=== PATIENT | male | born 1955 | race Caucasian/White ===

== ENCOUNTER 2018-07-07 14:40 | Inpatient (IN) | payer SELFPAY ==
[2018-07-07] MEDS ORDERED: LIDOCAINE 1% PF 2 ML VIAL. ONE (14:42)
[2018-07-07] MEDS ORDERED: IODIXANOL 320 MG/ML 100 ML VIAL. ONE (14:42)
[2018-07-07] MEDS ORDERED: fentaNYL PF VIAL 100 MCG/2 ML VIAL IV ONE (14:45)
[2018-07-07] MEDS ORDERED: IODIXANOL 320 MG/ML 100 ML VIAL. IART ONE (14:45)
[2018-07-07] MEDS ORDERED: LIDOCAINE 1% PF 2 ML VIAL. INJ ONE (14:45)
[2018-07-07] MEDS ORDERED: HEPARIN for IV BOLUS 10,000 UNIT/10 ML VIAL. IART ONE (14:45)
[2018-07-07] MEDS ORDERED: VERAPAMIL 5 MG/2 ML VIAL. IART ONE (14:45)
[2018-07-07] MEDS ORDERED: NITROGLYCERIN 200 MCG/2 ML SYRINGE FOR CATH/VASC LAB. IART ONE (14:45)
[2018-07-07] MEDS ORDERED: MIDAZOLAM HCL/PF 2 MG/2 ML VIAL. IV ONE (14:45)
[2018-07-07] MEDS ORDERED: VERAPAMIL 5 MG/2 ML VIAL. ONE (14:50)
[2018-07-07] MEDS ORDERED: fentaNYL PF VIAL 100 MCG/2 ML VIAL ONE (14:50)
[2018-07-07] MEDS ORDERED: MIDAZOLAM HCL/PF 2 MG/2 ML VIAL. ONE (14:50)
[2018-07-07] MEDS ORDERED: HEPARIN for IV BOLUS 10,000 UNIT/10 ML VIAL. ONE (14:50)
[2018-07-07] MEDS ORDERED: NITROGLYCERIN 200 MCG/2 ML SYRINGE FOR CATH/VASC LAB. ONE (14:51)
[2018-07-07] MEDS ORDERED: CONTRAST GIVEN. MC PRN (15:15)
[2018-07-07 15:16] VITALS: BP 133/87
--- NOTE | 2018-07-07 15:41 | CARD ---
MR#: [id number] Date of Study: 07/07/2018 Ordering Physician: VISH MONTEMAYOR, Referring Physician: VISH MONTEMAYOR, Tech: RT Shayna (R) APPROVED REPORT Technologist: RT Shayna (R) Nurse: Rachel Stephens RN Procedure(s) performed: Sedation Time: 25 Minutes [facility], Coronary angiography, Left ventriculography HISTORY : The patient is a 63 year-old male with a history of . INDICATION The indication(s) include : non-STEMI , dyspnea. CASE TECHNIQUE During this case, Fluoroscopy and low osmolar contrast were used for imaging. PROCEDURE NARRATIVE INFORMED CONSENT: After explaining the risks and benefits of the procedure and alternatives, informed consent was obtained. The patient was brought electively to the cardiac catheterization lab. A timeout was performed confi rming the patient's name, date of , procedure, and site of procedure. All necessary personnel w ere wearing the appropriate protective equipment and radiation monitor devices. (See nursing notes for medications administered). ACCESS: The right wrist was sterilely prepped and draped in the usual fashion. The right wrist was infiltrat ed with 1 mL of 2% lidocaine for subcutaneous anesthesia. A 6 Italian Terumo glide sheath was inserte d into the right radial artery without difficulty. CORONARY ANGIOGRAPHY: Right and left coronary angiography was performed using a 6Fr TIG 4.0 catheter. Left ventricular en d diastolic pressure was obtained with a TIG catheter and pullback was performed after left ventricul ography. All catheter exchanges and advancements were performed over a guidewire. CLOSURE: At case completion the right radial sheath was removed and a Terumo radial band was applied with 13 m l of air. COMPLICATIONS: The patient tolerated the procedure well and there were no immediate complications. FINDINGS: HEMODYNAMICS: LVEDP 26 mm Hg No gradient on LV to aortic pullback. AO: 128/78 LEFT VENTRICULOGRAM: Global hypokinesis with an EF of 30% CORONARY ANGIOGRAPHY: LM is a large caliber vessel with normal angiographic appearance. LAD is a large caliber vessel with a distal 20% stenosis. Ramus is a moderate caliber vessel with normal angiographic apeparance. LCx is a moderate caliber non-dominant vessel with normal angiographic appearance. OM1 is a moderate caliber vessel with normal angiographic appearance. RCA is a large caliber dominant vessel with normal angiographic appearance. RPDA and RPL are moderate caliber vessels with normal angiographic appearance. Conclusion 1. Elevated left ventricular filling pressures (LVEDP 28 mm Hg), consistent with acute on chronic sys tolic and diastolic HF 2. Severe LV dysfunction. EF 30% 3. No significant coronary artery disease. Recommendations Aggressive Medical Therapy Signed by : Vish Montemayor, Electronically Approved : 07/07/2018 15:40:33
--- NOTE | 2018-07-07 17:55 | SSS ---
ADMIT DATE: HISTORY OF PRESENT ILLNESS: The patient is a 63-year-old male patient who was originally admitted to [facility] on account of increasing shortness of breath. He was seen in the Emergency Room about 3 times for similar complaints and therefore he was admitted and we did initial lab work, showed his troponin to be slightly elevated, however, subsequent results showed that the troponin was trending down. His CT scan of the chest with PE protocol showed that he has pulmonary congestion consistent with congestive heart failure and he did respond very well to IV Lasix, did not have any wheezing and his inhalers were not really helpful. He was seen in consultation by Dr. Cuevas and he ordered an echocardiogram, which showed that the patient had left ventricle mild to moderately dilated, her systolic function was moderately impaired, ejection fraction estimated at 35%, had global hypokinesis of the left ventricle, there was borderline to mild concentric left ventricular hypertrophy, there was no significant aortic valvular stenosis, no significant aortic regurgitation, mild mitral regurgitation, and trace tricuspid regurgitation, and therefore, the patient was transferred to [facility] to undergo cardiac catheterization that was done. This showed that he had elevated left ventricular filling pressures consistent with fousa-fe-vthcmzi systolic and diastolic heart failure, severe left ventricular dysfunction with ejection fraction of 30%. No significant coronary artery disease and the manager title recommended aggressive medical therapy. PAST MEDICAL HISTORY: Significant for COPD and generalized osteoarthritis. He apparently was seen about 2 years ago by a local superintendent and underwent pulmonary function test, which showed that he has severe COPD. PAST SURGICAL HISTORY: Significant for tonsillectomy. ALLERGIES: He has no known drug allergies. MEDICATIONS: He is on albuterol inhaler, has received courses of Zithromax as well as tapering course of steroids. FAMILY HISTORY: He is adopted. He does not know his biological parents. SOCIAL HISTORY: He is , has 2 children. He is an ex-smoker, used to smoke a pack a day for more than 45 years. He quit about a month ago. He drinks alcohol very occasionally. He does not use any drugs. 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 REVIEW OF SYSTEMS: As per history of present illness. PHYSICAL EXAMINATION: GENERAL: On arrival to the floor after he underwent his cardiac catheterization, the patient was sitting slightly propped up in bed, in no apparent respiratory distress. No pallor, jaundice, cyanosis, or thyromegaly. No jugular venous distension. No limb edema. VITAL SIGNS: His heart rate was 80, blood pressure was 136/82, temperature was 98, respiratory rate was 18 and oxygen saturation was 98% on room air. HEAD, EYES, EARS, NOSE AND THROAT: Showed normocephalic, atraumatic. NECK: Supple. HEART: Showed normal first and second sounds. No gallop, rub or murmur. CHEST: Shows central trachea, equally reduced expansion, reduced air entry, vesicular breath sounds. No crepitation or rhonchi. ABDOMEN: Distended, soft, nontender. NEUROLOGIC: He was awake, alert, responding appropriately. All cranial nerves intact. EXTREMITIES: He moves extremities without difficulty. LABORATORY DATA: At [facility] showed his white cell count was 11,700, hemoglobin 14, hematocrit 44, MCV 91, and platelet count of 255,000 with normal manual differential. His arterial blood gas showed a pH of 7.39, pCO2 of 46, pO2 of 71, bicarbonate 28, and oxygen saturation was 94% on FiO2 at 21%. His chemistry showed a serum sodium 141, potassium 4.2, chloride 103, bicarbonate 30, anion gap of 8, BUN of 24, creatinine 0.9, estimated GFR was 86 mL per minute, his glucose was 93, calcium was 8.4. His first troponin was 0.115 and his beta natriuretic peptide was 805. ASSESSMENT AND PLAN: Obviously to wait for the cardiology recommendation. The patient can be discharged home. 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 Obviously, he had to quit smoking and he can follow with the local superintendent to gauge the severity of his lung function test as he is contemplating also application for disability or assisted. JARED URIARTE MD DR: SAVANNA/rosie JOB#: [id number] / [id number]
[2018-07-07] MEDS ORDERED: FUROSEMIDE 40 MG/4 ML VIAL. IVP ONE (18:15)
[2018-07-07] MEDS ORDERED: FURO-68 PO (18:21)
[2018-07-07] MEDS ORDERED: LISI-338 PO (18:22)
[2018-07-07] MEDS ORDERED: CARV3.12 PO (18:22)
== END 2018-07-07 19:00 | disposition other institution (70) | DRG 287 ==
LOC: CCL 14:40 → 2 NORTH 17:08
PROVIDERS: ADMIT Internal Medicine; ATTEND Internal Medicine Cardiovascular Disease
PROC: 4A023N7 Measurement of Cardiac Sampling and Pressure, Left Heart, Percutaneous Approach (ICD-10-PCS; principal; 2018-07-07)
PROC: B2111ZZ Fluoroscopy of Multiple Coronary Arteries using Low Osmolar Contrast (ICD-10-PCS; 2018-07-07)
PROC: B2151ZZ Fluoroscopy of Left Heart using Low Osmolar Contrast (ICD-10-PCS; 2018-07-07)
DX: I50.43 Acute on chronic combined systolic (congestive) and diastolic (congestive) heart failure (principal); Z87.891 Personal history of nicotine dependence; M15.9 Polyosteoarthritis, unspecified; J44.9 Chronic obstructive pulmonary disease, unspecified
CPT/HCPCS: 93458; 99152; 99153; C1769; C1892; J1644; J1940; J2250; J3010; J3490

== ENCOUNTER → 2019-11-02 | Outpatient (CLI) | payer BC ==
[2019-03-23 15:00] VITALS: BP 135/76
[~2019-11-02] MED LIST: CARV3.12 PO; FURO-68 PO; LISI-338 PO
--- NOTE | 2019-11-02 12:23 | CARD ---
MR#: [id number] Date of Study: 11/02/2019 Ordering Physician: DEMARCUS WEI, Referring Physician: DEMARCUS WEI Tech: Janee Correa RDCS APPROVED REPORT EXAM: Two-dimensional and M-mode echocardiogram with Doppler and color Doppler. Other Information Quality : Fair INDICATION Congestive Heart Failure RISK FACTORS Obesity 2D DIMENSIONS RVDd3.4 (2.9-3.5cm)Left Atrium(2D)4.8 (1.6-4.0cm) IVSd1.2 (0.7-1.1cm)Aortic Root(2D)2.8 (2.0-3.7cm) LVDd6.6 (3.9-5.9cm)LVOT Diameter2.3 (1.8-2.4cm) PWd1.3 (0.7-1.1cm)LVDs6.0 (2.5-4.0cm) FS (%) 8.5 %SV40.6 ml LVEF(%)18.2 (>50%) M-Mode DIMENSIONS MV EPSS2.3 (<0.5cm) Aortic Valve AoV Peak Calvin.99.8cm/sAoV VTI13.6cm AO Peak GR.4.0mmHgLVOT Peak Calvin.99.8cm/s AO Mean GR.2mmHgAVA (VMAX)4.20cm2 Mitral Valve MV E Wiooapyo97.2cm/sMV DECEL IMRI361oz MV A Ujmeqevt82.4cm/sE/A Ratio1.3 Pulmonary Vein S1 Kcvjjaeq79.6cm/sD2 Xrxnjopq92.2cm/s LEFT VENTRICLE The Left Ventricle is moderately dilated. There is mild concentric left ventricular hypertrophy. Left ventricle systolic function is severely impaired. The Ejection Fraction is 20-25%. There is severe g lobal hypokinesis of the left ventricle. Transmitral Doppler flow pattern is Grade II-pseudonormal fi lling dynamics. RIGHT VENTRICLE The right ventricle is mildly dilated. The right ventricular systolic function is normal. ATRIA The left atrium is mildly dilated. The right atrium is mildly dilated. The interatrial septum is inta ct with no evidence for an atrial septal defect or patent foramen ovale as noted on 2-D or Doppler im aging. AORTIC VALVE The aortic valve is calcified but opens well. Doppler and Color Flow revealed no significant aortic r egurgitation. There is no significant aortic valvular stenosis. MITRAL VALVE The mitral valve is calcified but opens well. Mitral annular calcification is mild. There is no evide nce of mitral valve prolapse. There is no mitral valve stenosis. Doppler and Color-flow revealed mild mitral regurgitation. TRICUSPID VALVE The tricuspid valve is normal in structure and function. Doppler and Color Flow revealed no tricuspid valve regurgitation noted. There is no tricuspid valve stenosis. PULMONIC VALVE The pulmonic valve is not well visualized. Doppler and Color Flow revealed mild pulmonic valvular reg urgitation. There is no pulmonic valvular stenosis. GREAT VESSELS The aortic root is normal in size. The ascending aorta is normal in size. The IVC is normal in size a nd collapses >50% with inspiration. PERICARDIAL EFFUSION There is no evidence of significant pericardial effusion. Critical Notification Critical Value: No <Conclusion> Left ventricle systolic function is severely impaired. The Ejection Fraction is 20-25%. There is severe global hypokinesis of the left ventricle. Signed by : Mathieu Alarcon, Electronically Approved : 11/02/2019 12:23:17
== END | disposition home or self-care (01) ==
LOC: ECHO 11:04
PROVIDERS: ATTEND Internal Medicine Cardiovascular Disease
DX: I08.8 Other rheumatic multiple valve diseases (principal)
CPT/HCPCS: 93306

== ENCOUNTER → 2020-05-24 | Outpatient (CLI) | payer MEDICAID ==
[2019-03-23 15:00] VITALS: BP 135/76
[~2020-05-24] MED LIST changes: +FURO80TA3 PO; +POTA20TA4 PO; +PROAIR RESPICL90 MCG IH
== END ==
LOC: LAB 14:18
PROVIDERS: ATTEND Internal Medicine Cardiovascular Disease
DX: I50.22 Chronic systolic (congestive) heart failure (principal); Z01.812 Encounter for preprocedural laboratory examination; Z20.828 Contact with and (suspected) exposure to other viral communicable diseases
CPT/HCPCS: U0003-CS

== ENCOUNTER 2020-05-27 10:24 | Observation (INO) | payer BC, MEDICAID ==
[2020-05-27] VITALS (11 sets, daily range): BP systolic 119–172; BP diastolic 72–90
[~2020-05-27] VITALS: Ht 167.6 cm; Wt 109.0 kg
[~2020-05-27 10:24] MED LIST changes: -FURO80TA3 PO; +HYDROmorphone 2 MG/ML VIAL IV PRN; +IV RINGERS,LACTATED 1000ML 1,000 ML IV SCH; +LIDOCAINE 1% PF 2 ML VIAL. ID PRN; +MORPHINE SULFATE 2 MG/ML VIAL. IV PRN; +ONDANSETRON PF 4 MG/2 ML VIAL. IV PRN; -POTA20TA4 PO; -PROAIR RESPICL90 MCG IH; +PROCHLORPERAZINE 10 MG/2 ML VIAL. IV PRN; +fentaNYL PF VIAL 100 MCG/2 ML VIAL IV PRN
[2020-05-27 10:50] LABS: HEMOGLOBIN 13.8 g/dL (13.0-17.5); RED BLOOD COUNT 4.36 x10^6/uL (4.30-5.70); RED CELL DISTRIBUTION WIDTH 13.3 % (11.5-14.5); WHITE BLOOD COUNT 11.3 x10^3/uL (4.0-11.0)
[2020-05-27] MEDS ORDERED: POTA20TA4 PO (10:55)
[2020-05-27] MEDS ORDERED: PROAIR RESPICL90 MCG IH (11:02)
[2020-05-27 11:06] LABS: CALCIUM 9.2 mg/dL (8.5-10.1); CREATININE 0.9 mg/dL (0.7-1.3); GFR 85.2; POTASSIUM 4.7 mmol/L (3.5-5.1)
--- NOTE | 2020-05-27 11:16 | EKG ---
[facility] [address] [place] [address] Test Date: 2020-05-27 Test Time: 11:04:24 Pat Name: FLORIAN DUARTE Department: Room: Gender: M Schedule Announcer: TAMMY : 1955 Requested By: DEMARCUS WEI Order Number: [id number] Reading MD: Measurements Intervals [place] Rate: 89 P: -28 WI: 142 QRS: -55 QRSD: 118 T: 106 QT: 408 QTc: 498 Interpretive Statements SINUS RHYTHM LEFT ATRIAL ABNORMALITY ABNORMAL LEFT AXIS DEVIATION R-S TRANSITION ZONE IN V LEADS DISPLACED TO THE LEFT LEFT ANTERIOR FASCICULAR BLOCK T ABNORMALITY IN HIGH LATERAL LEADS PROLONGED QT ABNORMAL ECG RI6.02 No previous ECG available for comparison
[2020-05-27] MEDS ORDERED: ALBUTEROL SULFATE 2.5 MG/3 ML NEBU. NEB ONE (11:45)
[2020-05-27] MEDS ORDERED: fentaNYL PF VIAL 250 MCG/5 ML VIAL ONE (11:54)
[2020-05-27] MEDS ORDERED: MIDAZOLAM HCL/PF 2 MG/2 ML VIAL. ONE (11:54)
[2020-05-27] MEDS ORDERED: KETAMINE HCL IN NACL, ISO-OSM 50 MG/5 ML SYRINGE ONE (11:55)
[2020-05-27] MEDS ORDERED: BACITRACIN 50,000 UNIT in IV NORMAL SALINE 250ML 250 ML IRR ONE (12:00)
[2020-05-27] MEDS ORDERED: LIDOCAINE 2%/EPI 1:100,000 20 ML VIAL. ONE (12:15)
[2020-05-27] MEDS ORDERED: LIDOCAINE 2%/EPI 1:100,000 20 ML VIAL. IJ ONE (12:45)
[2020-05-27] MEDS ORDERED: oxyCODONE/APAP 5/325 1 TAB TABLET PO PRN (14:00)
[2020-05-27] MEDS ORDERED: PROPOFOL 10 MG/ML (20ML) VIAL. IV ONE (14:09)
[2020-05-27] MEDS ORDERED: LIDOCAINE 2% PF 5 ML VIAL. ONE (14:09)
--- NOTE | 2020-05-27 14:40 | CARD ---
MR#: [id number] Date of Study: 05/27/2020 Ordering Physician: EDINSON CUEVAS, Referring Physician: EDINSON CUEVAS, Tech: APPROVED REPORT EXAM Implantation of Biotronik dual-chamber automated implantable cardioverter defibrillator. Defibrillation thresholds measurement at the time of implantation. FL TIME: 3.8 MINS DOSE: 30 GYCM2 INDICATIONS Primary prevention of sudden cardiac in a patient with chronic systolic heart failure, nonische quan cardiomyopathy with LVEF 20 to 25% PROCEDURE After explaining the risks, benefits, and alternative options, informed consent was obtained from the patient. The patient was brought to the cardiac catheterization lab and the left chest and shoulder were prepp ed and draped in the usual fashion. 30 cc of 2% lidocaine was infiltrated into the skin and subcutaneous tissues for local anesthesia. A n incision was made over the left infraclavicular fossa and using blunt dissection and cautery a pock et was created. Venous access was obtained in the left subclavian vein and 8 Kittitian sheath was inser sebastian. A Biotronik bipolar active fixation right ventricular lead with atrial sensing dipoles Plexa ProMRI S DX, serial #[id number] was advanced under fluoroscopy guidance and the tip was positioned in the right ventricular apex. The lead was secured into place and was attached to a Biotronik AICD generator mod el Acticor 7 VR-T DX, serial #[id number]. This was placed in the pocket that was subsequently closed i n 3 layers. Hemostasis was secured. Ventricular fibrillation was then induced to check the defibrillation threshold. Patient initially d id not convert with 25 J shock therapy and had to be shocked at maximum output of 40 J. We induced v entricular fibrillation again and this time we were able to convert her with 30 J shock therapy with reversed polarity. The right ventricular lead showed a sensing amplitude of 14.5 mV, impedance of 64 5 ohms and a threshold of 0.4 V. Patient tolerated the procedure well. There were no immediate comp lications. CONCLUSION Successful implantation of Biotronik automated implantable cardioverter defibrillator for primary pre vention of sudden cardiac in a patient with chronic systolic heart failure, nonischemic cardiom yopathy with EF 20 to 25%. Defibrillation thresholds were measured at the time of implantation. Signed by : Edinson Cuevas, Electronically Approved : 05/27/2020 14:39:56
[2020-05-27] MEDS ORDERED: FURO80TA3 PO (14:54)
--- NOTE | 2020-05-27 14:57 | RAD ---
Examination: PORTABLE CHEST 1V History: Post pacemaker Comparison/Correlation: None Findings: Upright portable frontal view chest was obtained. Single lead left-sided ICD is present. Calcified granuloma involving the right lower lung is present. Heart size is borderline. Pulmonary vasculature within upper limits of normal. Limited pulmonary inflation. No pneumothorax. No definite effusion. Bony structures are unremarkable. Impression: Left-sided ICD with associated lead is intact and in place on the basis of the frontal view provided. No pneumothorax. Electronically signed by: Gal Youngblood MD (05/27/2020 2:54 PM) [id number]
[2020-05-27] MEDS ORDERED: ALBUTEROL SULFATE 2.5 MG/3 ML NEBU. NEB PRN (16:00)
[2020-05-27] MEDS ORDERED: NON FORMULARY ITEM (Albuterol Sulfate (Proair Respiclick) 2 PUFF) IH PRN (16:00)
[2020-05-27] MEDS: CARVEDILOL 3.125 MG TABLET. PO SCH (17:09)
[2020-05-28 02:55] VITALS: BP 136/77
[2020-05-28 07:00] VITALS: BP 155/98
[2020-05-28] MEDS: CARVEDILOL 3.125 MG TABLET. PO SCH (08:45)
[2020-05-28] MEDS ORDERED: FUROSEMIDE 80 MG TABLET. PO SCH (09:00)
[2020-05-28] MEDS ORDERED: POTASSIUM CHLORIDE 20 MEQ TABLET.ER. PO SCH (09:00)
[2020-05-28] MEDS ORDERED: LISINOPRIL 5 MG TABLET. PO SCH (09:00)
--- NOTE | 2020-05-28 10:32 | RAD ---
Exam performed: 2 views of the chest. Indication: Reason: 1 day post pacemaker implantation / Spl. Instructions: / History: Date of Service: 05/28/2020 1:49 PM . Comparison : One view chest from 05/28/2020 Findings: PA and lateral radiographs of the chest reveal a mildly enlarged cardiomediastinal contour. There is a unipolar pacemaker in place. Pulmonary vascularity is congested, however unchanged. The lungs are clear. There is a calcified nodule in the right lung base. No pleural fluid is seen. The visualized osseous structures are unremarkable. Impression: Stable one view chest without acute findings.. Unchanged mild cardiomegaly Electronically signed by: Sanjana Hitchcock MD (05/28/2020 10:30 AM) [id number]
[2020-05-28 11:00] VITALS: BP 139/68
--- NOTE | 2020-05-28 12:54 | PDOC ---
PROGRESS NOTES Date of Service DATE: 05/28/20 TIME: 12:52 Subjective Subjective Patient seen and examined Objective Objective Vital Signs Date Time Temp Pulse Resp B/P (MAP) Pulse Ox O2 Delivery O2 Flow Rate FiO2 05/28/20 08:45 96 136/77 05/28/20 07:00 97.6 20 95 Room Air 97.6 05/28/20 02:55 2.0 Intake and Output 05/28/20 07:00 Intake Total 940 ml Output Total 6 ml Balance 934 ml Intake Oral 640 ml IV Total 300 ml Output Estimated Blood Loss 6 ml # Voids 3 Physical Exam Abdomen: Normal bowel sounds Heart: Regular rate General: No acute distress Lungs: Clear to auscultation Assessment Assessment 1. Status post AICD yesterday. Chest x-ray post implant normal. Stable over night. Interrogation of device this morning shows normal function. Awaiting morning chest x-ray. If no abnormality on x-ray the patient will be discharged later today on present home medications. Comment Review of Relevant I have reviewed the following items low (where applicable) has been applied. Labs Laboratory Tests Test 05/27/20 10:45 White Blood Count 11.3 x10^3/uL (4.0-11.0) Red Blood Count 4.36 x10^6/uL (4.30-5.70) Hemoglobin 13.8 g/dL (13.0-17.5) Hematocrit 40.0 % (39.0-53.0) Mean Corpuscular Volume 92 fL (79-100) Mean Corpuscular Hemoglobin 32 pg (25-35) Mean Corpuscular Hemoglobin Concent 35 g/dL (31-37) Red Cell Distribution Width 13.3 % (11.5-14.5) Platelet Count 336 x10^3/uL (140-400) Prothrombin Time 12.0 SEC (11.7-14.0) Prothromb Time International Ratio 0.9 (0.8-1.1) Sodium Level 135 mmol/L (136-145) Potassium Level 4.7 mmol/L (3.5-5.1) Chloride Level 100 mmol/L (98-107) Carbon Dioxide Level 30 mmol/L (21-32) Anion Gap 5 (6-14) Blood Urea Nitrogen 16 mg/dL (8-26) Creatinine 0.9 mg/dL (0.7-1.3) Estimated GFR (Cockcroft-Gault) 85.2 Glucose Level 120 mg/dL (70-99) Calcium Level 9.2 mg/dL (8.5-10.1) Medications Current Medications Ondansetron HCl (Zofran) 4 mg PRN Q6HRS PRN IV NAUSEA/VOMITING; Start 05/27/20 at 07:00; Stop 05/28/20 at 07:00; Status DC Fentanyl Citrate (Fentanyl 2ml Vial) 25 mcg PRN Q5MIN PRN IV MILD PAIN 1-3; S tart 05/27/20 at 07:00; Stop 05/28/20 at 07:00; Status DC Fentanyl Citrate (Fentanyl 2ml Vial) 50 mcg PRN Q5MIN PRN IV MODERATE TO SEVERE PAIN; Start 05/27/20 at 07:00; Stop 05/28/20 at 07:00; Status DC Morphine Sulfate (Morphine Sulfate) 1 mg PRN Q10MIN PRN IV SEVERE PAIN 7-10; Start 05/27/20 at 07:00; Stop 05/28/20 at 07:00; Status DC Ringer's Solution 1,000 ml @ 30 mls/hr Q24H IV ; Start 05/27/20 at 07:00; Stop 05/27/20 at 18:59; Status DC Lidocaine HCl (Xylocaine-Mpf 1% 2ml Vial) 2 ml PRN 1X PRN ID PRIOR TO IV START; Start 05/27/20 at 07:00; Stop 05/28/20 at 07:00; Status DC Hydromorphone HCl (Dilaudid) 0.5 mg PRN Q10MIN PRN IV SEV PAIN, Second choice; Start 05/27/20 at 07:00; Stop 05/28/20 at 07:00; Status DC Prochlorperazine Edisylate (Compazine) 5 mg PACU PRN PRN IV NAUSEA, MRX1; Start 05/27/20 at 07:00; Stop 05/28/20 at 07:00; Status DC Cefazolin Sodium/ Dextrose 50 ml @ 100 mls/hr 1X ONCE IV Last administered on 05/27/20at 12:30; Start 05/27/20 at 12:00; Stop 05/27/20 at 12:29; Status DC Bacitracin 04756 unit/Sodium Chloride 250 ml @ 250 mls/hr 1X ONCE IRR Last administered on 05/27/20at 13:29; Start 05/27/20 at 12:00; Stop 05/27/20 at 12:59; Status DC Albuterol Sulfate (Ventolin Neb Soln) 2.5 mg 1X ONCE NEB Last administered on 05/27/20at 12:03; Start 05/27/20 at 11:45; Stop 05/27/20 at 11:49; Status DC Fentanyl Citrate (Fentanyl 5ml Vial) 250 mcg STK-MED ONCE .ROUTE ; Start 05/27/20 at 11:54; Stop 05/27/20 at 11:55; Status DC Midazolam HCl (Versed) 2 mg STK-MED ONCE .ROUTE ; Start 05/27/20 at 11:54; Stop 05/27/20 at 11:55; Status DC Ketamine HCl (Ketamine) 50 mg STK-MED ONCE .ROUTE ; Start 05/27/20 at 11:55; Stop 05/27/20 at 11:55; Status DC Lidocaine/ Epinephrine (LIDOCAINE 2%-EPI 1:100,000 multi-dose) 20 ml STK-MED ONCE .ROUTE ; Start 05/27/20 at 12:15; Stop 05/27/20 at 12:16; Status DC Lidocaine/ Epinephrine (LIDOCAINE 2%-EPI 1:100,000 multi-dose) 20 ml 1X ONCE IJ Last administered on 05/27/20at 12:56; Start 05/27/20 at 12:45; Stop 05/27/20 at 12:47; Status DC Cefazolin Sodium/ Dextrose 50 ml @ 100 mls/hr 1X ONCE IV Last administered on 05/27/20at 17:09; Start 05/27/20 at 18:30; Stop 05/27/20 at 18:59; Status DC Oxycodone/ Acetaminophen (Percocet 5/325) 1 tab PRN Q4HRS PRN PO MILD PAIN 1-3 Last administered on 05/28/20at 00:40; Start 05/27/20 at 14:00 Propofol (Diprivan) 200 mg STK-MED ONCE IV ; Start 05/27/20 at 14:09; Stop 05/27/20 at 14:09; Status DC Lidocaine HCl (Lidocaine Pf 2% Vial) 5 ml STK-MED ONCE .ROUTE ; Start 05/27/20 at 14:09; Stop 05/27/20 at 14:09; Status DC Carvedilol (Coreg) 3.125 mg BIDWMEALS PO Last administered on 05/28/20at 08:45; Start 05/27/20 at 17:00 Furosemide (Lasix) 80 mg DAILY PO ; Start 05/28/20 at 09:00 Lisinopril (Prinivil) 5 mg DAILY PO Last administered on 05/28/20at 08:45; Start 05/28/20 at 09:00 Potassium Chloride (Klor-Con) 20 meq DAILY PO Last administered on 05/28/20at 08:45; Start 05/28/20 at 09:00 Non-Formulary Medication (Albuterol Sulfate (Proair Respiclick)) 2 puff PRN Q4- 6HRS PRN IH shortness of breath; Start 05/27/20 at 16:00; Status UNV Albuterol Sulfate (Ventolin Neb Soln) 2.5 mg PRN Q4HRS PRN NEB SHORTNESS OF BREATH; Start 05/27/20 at 16:00 Active Scripts Active Coreg (Carvedilol) 3.125 Mg Tablet 3.125 Mg PO BIDWMEALS Lisinopril 5 Mg Tablet 5 Mg PO DAILY Reported Furosemide 80 Mg Tablet 80 Mg PO DAILY Proair Respiclick (Albuterol Sulfate) 90 Mcg Aer.pow.ba 2 Puff IH PRN Q4-6HRS PRN Klor-Con M20 (Potassium Chloride) 20 Meq Tab.er.prt 1 Tab PO DAILY 30 Days Vitals/I & O Vital Sign - Last 24 Hours 05/27/20 05/27/20 05/27/20 05/27/20 13:44 13:52 13:52 14:05 Temp 97.2 97.2 Pulse 107 98 98 Resp 24 18 18 B/P (MAP) 171/104 170/101 Pulse Ox 97 99 99 O2 Delivery Nasal Cannula Nasal Cannula Nasal Cannula Nasal Cannula O2 Flow Rate 2.0 2.0 2.0 2.0 05/27/20 05/27/20 05/27/20 05/27/20 14:20 14:25 14:30 14:45 Temp 97.5 97.7 97.5 97.7 Pulse 96 96 94 Resp 18 20 B/P (MAP) 147/93 136/89 (105) 134/83 (100) Pulse Ox 98 97 O2 Delivery Nasal Cannula Nasal Cannula Nasal Cannula Nasal Cannula O2 Flow Rate 2.0 2.0 2.0 2.0 05/27/20 05/27/20 05/27/20 05/27/20 15:00 15:15 15:33 15:45 Pulse 96 96 90 B/P (MAP) 134/87 (103) 144/73 (96) 128/72 (90) O2 Delivery Nasal Cannula Nasal Cannula Nasal Cannula Nasal Cannula O2 Flow Rate 2.0 2.0 2.0 2.0 05/27/20 05/27/20 05/27/20 05/27/20 16:15 16:45 17:09 19:00 Temp 97.8 97.8 Pulse 94 94 96 96 Resp 20 B/P (MAP) 137/78 (97) 119/74 (89) 119/74 145/84 (104) Pulse Ox 97 O2 Delivery Nasal Cannula Nasal Cannula Nasal Cannula O2 Flow Rate 2.0 2.0 2.0 05/27/20 05/27/20 05/28/20 05/28/20 20:00 22:42 00:40 01:40 Temp 97.9 97.9 Pulse 86 Resp 21 18 18 B/P (MAP) 138/78 (98) Pulse Ox 96 96 96 O2 Delivery Nasal Cannula Nasal Cannula Nasal Cannula Nasal Cannula O2 Flow Rate 2.0 2.0 2.0 2.0 05/28/20 05/28/20 05/28/20 05/28/20 02:55 07:00 08:45 08:45 Temp 97.9 97.6 97.9 97.6 Pulse 75 91 96 96 Resp 20 20 B/P (MAP) 136/77 (96) 155/98 (117) 136/77 136/77 Pulse Ox 97 95 O2 Delivery Nasal Cannula Room Air O2 Flow Rate 2.0 Intake and Output 05/27/20 05/27/20 05/28/20 15:00 23:00 07:00 Intake Total 300 ml 180 ml 460 ml Output Total 6 ml Balance 294 ml 180 ml 460 ml Justifications for Admission Other Justification ANGIE KIM MD May 28, 2020 12:54
--- NOTE | 2020-05-28 13:05 | NUR ---
Discharge Note: FLORIAN DUARTE [address] Discharge instructions and discharge home medications reviewed with Patient and a copy given. All questions have been answered and understanding verbalized. The following instructions and handouts were given: Post Pacemaker/AICD handout. Discontinued lines and drains: IV discontinued. Catheter intact. Pressure applied. Bleeding stopped. Patient discharged to Private vehicle by [employer] in wheelchair with all belongings.
== END 2020-05-28 15:00 | disposition home or self-care (01) ==
LOC: SURG 10:24 → 2 NORTH 10:25
PROVIDERS: ADMIT Internal Medicine Cardiovascular Disease; ATTEND Internal Medicine Cardiovascular Disease
DX: I42.8 Other cardiomyopathies (principal); Z95.810 Presence of automatic (implantable) cardiac defibrillator
CPT/HCPCS: 33249; 36415; 71045; 71046; 80048; 85027; 85610; 93005; 93641; 94640; 96365; 96366; C1895; G0378; G0379; J0690; J2250; J2704; J3010; J3490; J7050; J7030; J7613

== ENCOUNTER → 2020-10-21 | Outpatient (CLI) | payer MEDICAID ==
[2019-03-23 15:00] VITALS: BP 135/76
[~2020-10-21] MED LIST changes: +CONTRAST GIVEN. MC PRN; +FURO80TA3 PO; -HYDROmorphone 2 MG/ML VIAL IV PRN; +IOHEXOL 350 MG/ML 100 ML VIAL. IV ONE; -IV RINGERS,LACTATED 1000ML 1,000 ML IV SCH; -LIDOCAINE 1% PF 2 ML VIAL. ID PRN; -LISI-338 PO; +LISI-517 PO; -MORPHINE SULFATE 2 MG/ML VIAL. IV PRN; -ONDANSETRON PF 4 MG/2 ML VIAL. IV PRN; +POTA20TA4 PO; +PROAIR RESPICL90 MCG IH; -PROCHLORPERAZINE 10 MG/2 ML VIAL. IV PRN; -fentaNYL PF VIAL 100 MCG/2 ML VIAL IV PRN
--- NOTE | 2020-10-21 11:17 | RAD ---
PQRS Compliance Statement: One or more of the following individualized dose reduction techniques were utilized for this examinat ion: 1. Automated exposure control 2. Adjustment of the mA and/or kV according to patient size 3. Use of iterative reconstruction technique CTA CHEST 10/21/2020 10:22 AM INDICATION: Hypoxia COMPARISON: None available TECHNIQUE: Axial CT images of the chest were obtained after the intravenous administration of nonioni c contrast. Coronal and sagittal reformats are provided. Maximum intensity projection images of the t horacic vasculature are provided. FINDINGS: The thyroid gland is normal in appearance. There are no pathologically enlarged axillary, mediastinal or hilar lymph nodes. Calcified mediastinal and hilar lymph nodes suggest sequela of granulomatous e xposure. Left chest wall cardiac device is identified with leads terminating in the right atrium and right ventricle. Prevascular lymph node measures 8 mm. Subcarinal lymph node measures 1.2 cm. The hea rt size is within normal limits. No significant pericardial effusion. Thoracic aorta is normal in cou rse and caliber. There is adequate opacification of the pulmonary arterial system. There there are no filling defects within the pulmonary arterial system to suggest acute or chronic pulmonary embolus. There is a subpleural solid noncalcified pulmonary nodule in the right upper lobe measuring 8 mm the right lung apex (series 3, image 22). There is a spiculated nodule in the superior segment right lowe r lobe measuring 1.5 x 1.3 cm (series 3, image 62). There is a calcified granuloma in the right lower lobe anteriorly measuring 15 mm.. 4 mm solid noncalcified pulmonary nodule identified in the right u pper lobe (image 37). Mild bronchial wall thickening compatible with nonspecific bronchitis. There ar e no pulmonary infiltrates. There are no pleural effusions. No pulmonary vascular congestion or pneum othorax. There is a left adrenal mass measuring 4.2 x 2.8 cm with macroscopic fat. Cholelithiasis. No suspicio us osseous lesions are visualized. IMPRESSION: 1. There is no evidence for acute or chronic pulmonary embolism. 2. There is a solid noncalcified spiculated mass in the right lower lobe superior segment measuring 1 .5 x 1.3 cm. Further catheterization is recommended with tissue sampling or PET/CT versus 3 month fol low-up chest CT. 3. Nonspecific bronchitis with bronchial wall thickening. 4. No pathologically enlarged thoracic lymph nodes. Borderline mediastinal and prevascular lymph node s. Attention on follow-up imaging is recommended. 5. Left adrenal mass containing macroscopic fat measures 4.2 x 2.8 cm. Consideration may be given for an adrenal myelolipoma, although a collision tumor could have similar appearance. Electronically signed by: Ayla Domínguez MD (10/21/2020 11:14 AM) [id number]
== END ==
LOC: CT 10:13
PROVIDERS: ATTEND Internal Medicine Critical Care Medicine
DX: R91.8 Other nonspecific abnormal finding of lung field (principal); K80.20 Calculus of gallbladder without cholecystitis without obstruction; J84.10 Pulmonary fibrosis, unspecified; R09.02 Hypoxemia; E27.8 Other specified disorders of adrenal gland
CPT/HCPCS: 71275; Q9967

== ENCOUNTER → 2020-11-11 | Outpatient (CLI) | payer MEDICAID ==
[2019-03-23 15:00] VITALS: BP 135/76
[~2020-11-11] MED LIST changes: -CONTRAST GIVEN. MC PRN; -IOHEXOL 350 MG/ML 100 ML VIAL. IV ONE
--- NOTE | 2020-11-11 13:11 | RAD ---
EXAM: Dual modality PET-CT Scan DATE: 11/11/2020 RADIOPHARMACEUTICAL: 15 mCi F-18 fluorodeoxyglucose (FDG) IV. CLINICAL HISTORY: Pulmonary nodule. COMPARISON: 10/21/2020. TECHNIQUE: Approximately 45 minutes after tracer administration, routine, attenuation-corrected Posit chinedu Emission Tomography (PET) images were obtained from the level of the base of the skull through th e level of the mid thighs. Tomographic reconstructions are reviewed in coronal, transaxial and sagitt al planes. Non-contrast CT imaging was performed for attenuation correction and localization purpose s only. These images do not constitute a diagnostic-quality CT examination and were not used to diag nose disease independently of the PET images. The blood glucose level was 105 mg/dL at the time of FDG administration. *One or more of the following individualized dose reduction techniques were utilized for this examina tion: 1. Automated exposure control. 2. Adjustment of the mA and/or kV according to patient size. 3. Use of iterative reconstruction technique. FINDINGS: There is increased radiotracer activity associated with a 1.3 cm nodule within the superior right low er lobe with a maximum SUV of 4.1. The morphology of this lesion and degree of radiotracer activity i s concerning for malignancy. There is a small nonspecific focus of increased radiotracer activity wit hin maximum SUV of 3.1 along the lateral right third rib. This may be due to heterogeneous physiologi c skeletal activity. However, there is a tiny sclerotic lesion within this rib. This is most likely a bone island. However, a solitary metastasis is not excluded in this patient. There is a small focus of increased radiotracer activity associated with the left first costochondral junction which is like ly degenerative/inflammatory. There is physiologic activity within the bowel and renal collecting sys tem. There is physiologic heterogeneous activity within the liver. This limits elevation for small li joseph lesions. There is mild heterogeneous radiotracer activity within maximum SUV of 3.4 associated wi th a 4.4 cm left adrenal nodule. The CT portion of the exam demonstrates a 1.3 cm nodule within the superior right lower lobe. There a re 9 mm right and 6 mm left posterior superior upper lobe pleural-based nodules. There is a 4 mm nodu le within the posterior right upper lobe. There is a calcified granuloma within the lateral right low er lobe. There is linear scarring or atelectasis within the lingula and medial right middle lobe. There is cardiomegaly. There is a cardiac pacemaker. No pathologically enlarged lymph node is seen. T here are right hilar and subcarinal calcified granulomas. There is a left cardiac pacemaker generator . No hepatic lesion is seen. There is cholelithiasis. The pancreas is unremarkable. There are splenic granulomas. There is a 4.4 cm left adrenal nodule containing macroscopic fat, the appearance of whic h favors a myelolipoma. The kidneys are unremarkable. There is prostatomegaly. There is no bowel obst ruction. There are few colonic diverticula. There is no convincing suspicious osseous lesion. IMPRESSION: 1. 3.4 cm radiotracer avid pulmonary nodule within the superior right lower lobe with a maximum SUV o f 4.1. The lesion morphology and degree of radiotracer activity is most concerning for primary lung m alignancy. 2. Small focus of mild radiotracer activity within maximum SUV of 3.1 associated with the right third rib. This may be due to physiologic heterogeneous osseous activity. However, there is a tiny sclerot ic lesion within this rib. This is likely a bone island. However, given the aforementioned suspicious pulmonary nodule, the possibility of a solitary metastasis is not excluded. 3. Small bilateral pulmonary nodules measuring up to 9 mm. The demonstrate no significant radiotracer activity. However, these are likely inferior to limits in size for correct assessment with PET/CT. S hort-term CT follow-up in 3 months is recommended. 4. 4.4 cm left adrenal nodule containing macroscopic fat. This demonstrates mild increased radiotrace r activity with a maximum SUV of 3.4. The presence of macroscopic fat and stability in size of this l esion compared to a CT performed 07/05/2018 favors a benign myelolipoma. This can be better assessed w ith an adrenal protocol MRI if clinically feasible. 5. Colonic diverticulosis. 6. Prostatomegaly. Electronically signed by: Miriam Sin MD (11/11/2020 1:09 PM) [id number]
== END ==
LOC: PETSC 10:00
PROVIDERS: ATTEND Internal Medicine Critical Care Medicine
DX: R91.8 Other nonspecific abnormal finding of lung field (principal); N40.0 Benign prostatic hyperplasia without lower urinary tract symptoms; K57.30 Diverticulosis of large intestine without perforation or abscess without bleeding; Z95.0 Presence of cardiac pacemaker
CPT/HCPCS: 78815; A9552

== ENCOUNTER 2020-11-22 08:18 | Outpatient (CLI) | payer MEDICAID ==
[2020-11-22] VITALS (15 sets, daily range): BP systolic 105–165; BP diastolic 53–99
[~2020-11-22] VITALS: Ht 162.6 cm; Wt 113.4 kg
[2020-11-22] MEDS ORDERED: LIDOCAINE WITH 8.4% SOD BICARB 3 ML DISP.SYRIN. ONE ×2 (09:11→12:50)
[2020-11-22 09:19] LABS: BASO # 0.1 x10^3/uL (0.0-0.2); BASO % 1 % (0-3); EOS # 0.4 x10^3/uL (0.0-0.7); EOS % 5 % (0-3); HEMATOCRIT 38.8 % (39.0-53.0); HEMOGLOBIN 12.7 g/dL (13.0-17.5); LYMPH # 1.2 x10^3/uL (1.0-4.8); LYMPH % 14 % (24-48); MEAN CORPUSCULAR HEMOGLOBIN 29 pg (25-35); MEAN CORPUSCULAR HGB CONC 33 g/dL (31-37); MEAN CORPUSCULAR VOLUME 89 fL (79-100); MONO # 0.7 x10^3/uL (0.0-1.1); MONO % 8 % (0-9); NEUT # 6.3 x10^3/uL (1.8-7.7); NEUT % 73 % (31-73); PLATELET COUNT 254 x10^3/uL (140-400); RED BLOOD COUNT 4.36 x10^6/uL (4.30-5.70); RED CELL DISTRIBUTION WIDTH 13.6 % (11.5-14.5); WHITE BLOOD COUNT 8.6 x10^3/uL (4.0-11.0)
[2020-11-22 09:30] LABS: PROTHROMBIN TIME PATIENT 13.4 SEC (11.7-14.0)
[2020-11-22] MEDS ORDERED: fentaNYL PF VIAL 100 MCG/2 ML VIAL ONE ×2 (10:19→12:36)
[2020-11-22] MEDS ORDERED: MIDAZOLAM HCL/PF 2 MG/2 ML VIAL. ONE ×3 (10:19→12:37)
[2020-11-22] MEDS ORDERED: MIDAZOLAM HCL/PF 2 MG/2 ML VIAL. IV ONE (10:30)
[2020-11-22] MEDS ORDERED: LIDOCAINE WITH 8.4% SOD BICARB 3 ML DISP.SYRIN. IJ ONE ×2 (10:30→13:30)
[2020-11-22] MEDS ORDERED: fentaNYL PF VIAL 100 MCG/2 ML VIAL IV ONE (10:30)
[2020-11-22] MEDS ORDERED: IV RINGERS,LACTATED 1000ML 1,000 ML IV SCH (12:30)
[2020-11-22] MEDS ORDERED: KETAMINE HCL IN NACL, ISO-OSM 50 MG/5 ML SYRINGE ONE (12:35)
[2020-11-22] MEDS ORDERED: PROPOFOL 10 MG/ML (20ML) VIAL. IV ONE (12:36)
[2020-11-22] MEDS ORDERED: LIDOCAINE 2% PF 5 ML VIAL. ONE (12:36)
--- NOTE | 2020-11-22 12:44 | NUR ---
Patient came in outpatient for right lung biopsy, attempted biopsy with moderate sedation. Unable to complete biopsy due to patient moving and not able to follow directions. Will await to be done with anesthesia per Dr. Aiken.
--- NOTE | 2020-11-22 13:27 | NUR ---
Right lung biopsy completed with anesthesia, patient tolerated well with no issues. 4x4 and tegaderm to right upper back. Report called to DIMITRIOS Walker in PACU.
--- NOTE | 2020-11-22 15:16 | RAD ---
XR CHEST 1V History: Reason: s/p lung bx in IR / Spl. Instructions: pt is in PACU / History: lung mass Comparison: Chest x-ray 05/28/2020, 08/17/2020 Technique: AP radiograph of the chest. Findings: The lungs are adequately and symmetrically inflated. Subtle increased attenuation in the right midlun g. Calcified granuloma right lower lobe. The cardiomediastinal silhouette is enlarged. Single-lead le ft chest pacemaker-defibrillator with lead tip terminating at the right ventricle. No acute osseous a bnormality. Soft tissues are unremarkable. Impression: 1. Subtle increased attenuation right mid lung may represent postbiopsy changes. No pneumothorax. Electronically signed by: Wan Campos MD (11/22/2020 3:14 PM) [facility]
--- NOTE | 2020-11-23 14:49 | RAD ---
CT-guided biopsy right lower lobe pulmonary nodule 11/22/2020 Discussion: The procedure was explained in its entirety to the patient or the patients designated access service representative by a member of the treatment team, including a discussion of the risks, benefits and commonly accepted alternatives to the procedure, as well as the expected consequences of no therapy whatsoever. Discussion of the risks included, but was not limited to, those that are most frequent and those that are rare but possibly severe or life-threatening, as well as the possibility of unforeseen complications. All elements of maximal sterile barrier technique including the use of a cap, mask, sterile gown, sterile gloves, large sterile sheet, appropriate hand hygiene, and 2% chlorhexidine for cutaneous antisepsis (or acceptable alternative antiseptic per current guidelines) were followed for this procedure. Initially the procedure was performed under conscious sedation including continuous cardiopulmonary monitoring via dedicated sedation nurse. [id number] sedation time was 20 minutes. Unfortunately the patient was not adequately sedated. There is a intermission, followed by the procedure being resumed under sedation via the anesthesiology department. CT imaging was performed redemonstrating a rounded nodule in the right lower lobe. The overlying skin was prepped and draped using sterile barrier technique. A prone position was employed. 1% lidocaine was administered for local anesthesia. Under intermittent CT guidance a 17-gauge needle was advanced to the nodule. Core biopsy samples were obtained. [place] were removed. Manual pressure was held. Impression: CT-guided biopsy, right lower lobe pulmonary nodule as described PQRS Compliance Statement: One or more of the following individualized dose reduction techniques were utilized for this examination: 1. Automated exposure control 2. Adjustment of the mA and/or kV according to patient size 3. Use of iterative reconstruction technique
--- NOTE | 2020-11-24 15:14 | PATHOLOGY ---
[facility] Accession Number: [id number] . 01 Material submitted: . lung - RIGHT LUNG MASS CORE BIOPSY. Modifiers: right . 01 Clinical history: . RIGHT LUNG MASS RIGHT LUNG BIOPSY . 02 Diagnosis: Lung tissue, right lung mass needle biopsies: - Squamous cell carcinoma, moderately to poorly differentiated. (JPM:js; 11/24/2020) S 11/24/2020 0915 Local . 02 Comment: Sections of the right lung mass needle biopsy reveal a malignant epithelial neoplasm. Most of the neoplasm is comprised of irregular nests of malignant, non-keratinizing squamous epithelial cells within an inflamed reactive stroma. Some of the nests of tumor cells are comprised of malignant squamous epithelial cells having more abundant amounts of eosinophilic keratinized cytoplasm. There are focal dyskeratotic cells. Tumor cells show moderate nuclear pleomorphism. Mitotic figures are readily demonstrated. Adjacent lung tissue shows focal organizing and obstructive pneumonia. The morphologic findings are supportive of the diagnosis of a moderately to poorly differentiated squamous cell carcinoma. The case is also examined by Dr. Joseph, who concurs with the diagnosis on 11/24/2020. The resulys are reported to Dr. Powell on 11/24/20 at 3:00 PM. (JPM:js; 11/24/2020) . 02 Electronically signed: . Charbel Chirinos MD, Pathologist NPI- [id number] . 01 Gross description: . The specimen is received in formalin, labeled "Yosi White, right lung biopsy". Received are three needle cores of pale mitchell tissue ranging in length from 0.4 to 0.5 cm, with each measuring 0.1 cm in diameter. The specimen is submitted entirely in cassettes A1 through A3. (CAA; 11/23/2020) QAC/QAC 11/23/2020 1328 Local . 02 Pathologist provided ICD-10: C34.91 . 02 CPT . 555933 Specimen Comment: A courtesy copy of this report has been sent to [phone], [phone] Specimen Comment: [id number], Specimen Comment: Report sent to DR PETTY,DR HILL / DR PRIETO Performed at: 01 [facility] [address], [place] [id number] MD Polo Joseph MD Phone: [phone] Performed at: [address] [facility] [address] [place], [place] [id number] MD Charbel Chirinos MD Phone: [phone]
== END 2020-11-22 15:42 | disposition home or self-care (01) ==
LOC: INTRAD 08:18
PROVIDERS: ATTEND Internal Medicine Critical Care Medicine
DX: R91.8 Other nonspecific abnormal finding of lung field (principal); R91.1 Solitary pulmonary nodule; J44.9 Chronic obstructive pulmonary disease, unspecified; M19.90 Unspecified osteoarthritis, unspecified site; I11.0 Hypertensive heart disease with heart failure; I50.9 Heart failure, unspecified; Z87.891 Personal history of nicotine dependence; Z79.899 Other long term (current) drug therapy; Z98.890 Other specified postprocedural states; Z20.822 Contact with and (suspected) exposure to COVID-19
CPT/HCPCS: 32408; 36415; 71045; 85025; 85610; 87426; 99152; C9803; J2250; J2704; J3010; J3490; U0003

== ENCOUNTER → 2021-07-21 | Outpatient (CLI) | payer MEDICAID ==
[2020-11-22 15:05] VITALS: BP 135/89
[~2021-07-21] MED LIST changes: -LISI-517 PO; +LISI5TAB15 PO; +POTA-121 PO; -POTA20TA4 PO
--- NOTE | 2021-07-21 14:15 | RAD ---
EXAM: Dual modality PET-CT Scan DATE: 07/21/2021 RADIOPHARMACEUTICAL: 15 mCi F-18 fluorodeoxyglucose (FDG) IV. CLINICAL HISTORY: Pulmonary nodule. COMPARISON: 11/11/2020 TECHNIQUE: Approximately 45 minutes after tracer administration, routine, attenuation-corrected Posit chinedu Emission Tomography (PET) images were obtained from the level of the base of the skull through th e level of the mid thighs. Tomographic reconstructions are reviewed in coronal, transaxial and sagitt al planes. Non-contrast CT imaging was performed for attenuation correction and localization purpose s only. These images do not constitute a diagnostic-quality CT examination and were not used to diag nose disease independently of the PET images. The blood glucose level was within acceptable limits for the exam. *One or more of the following gavi vidualized dose reduction techniques were utilized for this examination: 1. Automated exposure control. 2. Adjustment of the mA and/or kV according to patient size. 3. Use of iterative reconstruction technique. FINDINGS: There is irregular nodular masslike opacity within the superior segment of the right lower lobe, corresponding with the location of the previously demonstrated 1.3 cm nodule. The imaging appea last favors radiation related changes. The maximum SUV in this location is 2.0. There is a stable 7 mm pleural-based nodule within the posterior right lung apex and stable 5 mm pleural-based nodule wit hin the posterior left lung apex. There are has been slight interval increase in a 4 mm nodule within the posterior right upper lobe (series 3, image 73). There is a calcified granuloma within the right lower lobe. There is bilateral posterior dependent atelectasis. There is no pleural effusion or pneu mothorax. The heart is mildly enlarged. There is a cardiac pacemaker unchanged in appearance. There are multipl e nonspecific mediastinal and hilar lymph nodes. These are nonspecific significantly changed compared to the prior study. There are calcified right hilar and subcarinal lymph nodes. No hepatic lesion is seen. There is cholelithiasis. The pancreas is unremarkable. There are multiple splenic granulomas. There is a 4.5 cm left adrenal nodule containing macroscopic fat and a small amount of calcification, stable in appearance. There is a suspected punctate right renal stone. There is no bowel obstruction . There is no appendicitis. The prostate is enlarged and results in deformation of the bladder base. There is bladder wall thickening likely due to chronic outlet obstruction. The aorta is normal in pedro iber. There is no retroperitoneal or mesenteric lymphadenopathy. The visualized portions of the brain are unremarkable. There is right greater than left maxillary and bilateral ethmoid sinus because of thickening. The mastoid air cells are clear. There is no neck lym phadenopathy. There are degenerative changes throughout the spine. There is an incidental right cervi pedro rib. There is a small sclerotic lesion within the lateral right second rib. IMPRESSION: 1. Nonmasslike opacities within the right lower lobe with a maximum SUV of 2.0 cm, corresponding with the location of the previously demonstrated 1.3 cm nodule demonstrating an SUV of 4.1. This favors r adiation related change and interval therapy response. 2. No convincing radiotracer avid or pathologically enlarged mediastinal or hilar lymph node. There a re stable nonspecific lymph nodes which do not demonstrate tracer activity above the blood pole. 3. Small pulmonary nodules measuring up to 7 mm. This includes a 4 mm nodule within the right upper l obe which is slightly increased compared to the prior study. These nodules are too small to character ize with PET. Continued at the time of short-term follow-up is recommended. 4. Stable 4.5 cm left adrenal nodule containing macroscopic fat, the appearance of which favors a mye lolipoma. This can be confirmed within adrenal protocol MRI if clinically indicated. 5. No suspicious osseous radiotracer activity. The previously demonstrated right rib activity is no l onger seen. Electronically signed by: Miriam Sin MD (07/21/2021 2:13 PM) [id number]
== END ==
LOC: PETSC 08:51
PROVIDERS: ATTEND Radiology Radiation Oncology
DX: C34.31 Malignant neoplasm of lower lobe, right bronchus or lung (principal); R91.8 Other nonspecific abnormal finding of lung field; J84.10 Pulmonary fibrosis, unspecified; J81.1 Chronic pulmonary edema; I51.7 Cardiomegaly; K80.20 Calculus of gallbladder without cholecystitis without obstruction; N40.0 Benign prostatic hyperplasia without lower urinary tract symptoms; Q76.5 Cervical rib; M47.819 Spondylosis without myelopathy or radiculopathy, site unspecified
CPT/HCPCS: 78815; A9552